=== PATIENT | male | born 1975 | race Caucasian/White ===

== ENCOUNTER → 2019-04-18 13:58 | Outpatient (BNVA) | payer BC, SELFPAY | PROVIDERS: Visit Provider Registered Nurse | DX: J02.0 Streptococcal pharyngitis (principal); R68.89 Other general symptoms and signs | CPT/HCPCS: 87880 ==

== ENCOUNTER → 2024-06-20 08:03 | Outpatient (BNVA) | payer OTHER, SELFPAY | PROVIDERS: PCP Registered Nurse; Visit Provider Nurse Practitioner Family | DX: J02.9 Acute pharyngitis, unspecified (principal) | CPT/HCPCS: 87880 ==